=== PATIENT | female | born 1960 | race Caucasian/White ===

== ENCOUNTER → 2022-04-03 | Outpatient (CLI) | payer OTHER ==
[~2022-04-03] MED LIST: LOVA20 PO; METO50ER PO; OXYACE5T PO
[2022-04-08 17:11] LABS: HPV 16 Negative (Negative); HPV 18 Negative (Negative); HPV OTHER HR TYPES Negative (Negative)
== END | disposition home or self-care (01) ==
LOC: RAD SHORT 12:40
PROVIDERS: Registered Nurse Community Health
DX: Z12.4 Encounter for screening for malignant neoplasm of cervix (principal)
CPT/HCPCS: 87624; G0123

== ENCOUNTER 2024-07-18 17:00 | Inpatient (IN) | payer OTHER ==
[~2024-07-18] VITALS: Ht 170.2 cm; Wt 78.5 kg
[2024-07-18] VITALS (11 sets, daily range): BP systolic 111–164; BP diastolic 67–94
[2024-07-18 17:12] LABS: Calcium, Ionized (POC) 1.13 mmol/L (1.10-1.46); Chloride (POC) 105 mmol/L (98-108); Creatinine (POC) 0.7 mg/dL (0.6-1.0); Glucose (ISTAT POC) 131 mg/dL (70-99); Potassium (POC) 3.6 mmol/L (3.5-5.5); Sodium (POC) 138 mmol/L (135-148); Total CO2 (POC) 23 mmol/L (21-32)
[2024-07-18] MEDS ORDERED: Morphine Sulfate 4 MG/1 ML Injection ONE (17:16)
[2024-07-18] MEDS ORDERED: Verapamil HCL 2.5 MG/ML 2ML Injection ONE (17:20)
[2024-07-18] MEDS ORDERED: Heparin Sodium 1000 Units/ML 10ML MDV ONE (17:21)
[2024-07-18] MEDS ORDERED: FentaNYL Citrate 50 MCG/ML 2 ML Injection ONE (17:21)
[2024-07-18] MEDS ORDERED: Nitroglycerin 2 MG/20 ML BTL ONE (17:21)
[2024-07-18] MEDS ORDERED: NS 250 ML IV ONE (17:21)
[2024-07-18] MEDS ORDERED: NS 1,000 ML IV ONE ×2 (17:21→17:22)
[2024-07-18] MEDS ORDERED: Midazolam HCl 1MG / ML 2ML Vial ONE (17:21)
[2024-07-18 17:27] LABS: BASOPHILS ABSOLUTE AUTO 0.02 K/mm3 (0.00-0.23); BASOPHILS PERCENT AUTO 0 % (0-2); EOSINOPHILS ABSOLUTE AUTO 0.03 K/mm3 (0.00-0.68); EOSINOPHILS PERCENT AUTO 0 % (0-6); Hematocrit 44.6 % (33.0-51.0); Hemoglobin 15.4 g/dL (11.5-16.0); IMMATURE GRAN ABSOLUTE AUTO 0.03 K/mm3 (0.00-0.10); IMMATURE GRAN PERCENT AUTO 0 % (0-1); LYMPHOCYTES ABSOLUTE AUTO 2.11 K/mm3 (0.84-5.20); LYMPHOCYTES PERCENT AUTO 24 % (21-46); MONOCYTES ABSOLUTE AUTO 0.44 K/mm3 (0.16-1.47); MONOCYTES PERCENT AUTO 5 % (4-13); Mean Corpuscular HGB 29.7 pg (26.0-34.0); Mean Corpuscular HGB Conc 34.5 g/dL (31.5-36.5); Mean Corpuscular Volume 86 fL (80-100); Mean Platelet Volume 9.3 fL (9.1-12.4); NEUTROPHILS ABSOLUTE AUTO 6.36 K/mm3 (1.96-9.15); NEUTROPHILS PERCENT AUTO 71 % (41-73); Platelet Count 297 K/mm3 (150-400); RDW Coefficient Variation 12.2 % (11.7-14.2); RDW Standard Deviation 38.5 fL (35.1-46.3); Red Blood Cell Count 5.18 M/mm3 (3.80-5.20); White Blood Cell Count 8.99 K/mm3 (4.00-11.30)
[2024-07-18] MEDS ORDERED: Atropine Sulfate 0.1 MG/ML 10ML SYR ONE (17:27)
[2024-07-18] MEDS ORDERED: Phenylephrine HCl 100 MCG/ML-NS 10MLSYR (1MG/10ML) ONE (17:50)
[2024-07-18] MEDS ORDERED: Tirofiban HCL Monohydrate 3.75 MG/15 ML Vial ONE (17:52)
[2024-07-18 17:56] LABS: International Normalized Ratio 0.97; Prothrombin Time Results 10.4 Sec (9.7-11.5)
[2024-07-18 17:57] LABS: Albumin, Blood 3.6 g/dL (3.4-5.0); Bilirubin, Total 0.6 mg/dL (0.1-1.0); Bun/Creatinine Ratio 21.8 (12.0-20.0); Calcium, Blood 9.4 mg/dL (8.5-10.1); Creatinine, Blood 0.6 mg/dL (0.40-1.00); Globulin, Blood 3.7 g/dL (2.2-4.0); Potassium, Blood 3.6 mmol/L (3.5-5.5); Total Protein, Blood 7.3 g/dL (6.4-8.2)
[2024-07-18] MEDS ORDERED: Ticagrelor 90 MG TABLET PO ONE (18:19)
[2024-07-18] MEDS ORDERED: Heparin Sodium,Porcine 5,000 UNIT/0.5 ML SDV SC ONE (18:19)
--- NOTE | 2024-07-18 19:04 | NUR ---
ADMISSION: Pt arrived to ICU 15 from landscape laborer at 1843 with 14mls in TR band. laborer tanbark staff removed one ml of air in TR band in room as pt reported numbness in her thumb. Pt is A/O x 4. Dr Chirinos reported to bedside shortly after pt arrival. Report given to gas torch brazier RN.
[2024-07-18 20:59] LABS: CHOL/HDL RATIO 3.4; Cholesterol 267 mg/dL (50-200); HDL Cholesterol 78 mg/dL (>39); LDL/HDL RATIO 2.3; Low Density Lipoprotein Chol 178 mg/dL (0-110); Magnesium, Blood 1.8 mg/dL (1.6-2.4); Triglycerides 57 mg/dL (30-160); Very Low Density Lipoprot Chol 11 mg/dL (6-32)
[2024-07-19] VITALS (17 sets, daily range): BP systolic 103–175; BP diastolic 58–96
[2024-07-19 03:28] LABS: BASOPHILS ABSOLUTE AUTO 0.02 K/mm3 (0.00-0.23); BASOPHILS PERCENT AUTO 0 % (0-2); EOSINOPHILS ABSOLUTE AUTO 0.07 K/mm3 (0.00-0.68); EOSINOPHILS PERCENT AUTO 1 % (0-6); Hematocrit 41.1 % (33.0-51.0); Hemoglobin 14.2 g/dL (11.5-16.0); IMMATURE GRAN ABSOLUTE AUTO 0.02 K/mm3 (0.00-0.10); IMMATURE GRAN PERCENT AUTO 0 % (0-1); LYMPHOCYTES PERCENT AUTO 27 % (21-46); MONOCYTES ABSOLUTE AUTO 0.43 K/mm3 (0.16-1.47); MONOCYTES PERCENT AUTO 6 % (4-13); Mean Corpuscular HGB 30.5 pg (26.0-34.0); Mean Corpuscular HGB Conc 34.5 g/dL (31.5-36.5); Mean Corpuscular Volume 88 fL (80-100); Mean Platelet Volume 9.3 fL (9.1-12.4); NEUTROPHILS ABSOLUTE AUTO 4.44 K/mm3 (1.96-9.15); NEUTROPHILS PERCENT AUTO 66 % (41-73); Platelet Count 222 K/mm3 (150-400); RDW Coefficient Variation 12.5 % (11.7-14.2); RDW Standard Deviation 40.4 fL (35.1-46.3); Red Blood Cell Count 4.66 M/mm3 (3.80-5.20); White Blood Cell Count 6.78 K/mm3 (4.00-11.30)
[2024-07-19 03:55] LABS: Albumin, Blood 3.2 g/dL (3.4-5.0); Albumin/Globulin Ratio 0.9 (0.8-1.8); Bilirubin, Total 0.7 mg/dL (0.1-1.0); Bun/Creatinine Ratio 28.5 (12.0-20.0); Calcium, Blood 8.8 mg/dL (8.5-10.1); Creatinine, Blood 0.49 mg/dL (0.40-1.00); Globulin, Blood 3.6 g/dL (2.2-4.0); Potassium, Blood 3.9 mmol/L (3.5-5.5); Total Protein, Blood 6.8 g/dL (6.4-8.2)
--- NOTE | 2024-07-19 04:37 | NUR ---
PROVIDER STEPHANIE UPDATED ON PT CONDITION. ORDERS FOR STATUS CHANGE TO MEDICAL W/ TELE
--- NOTE | 2024-07-19 04:42 | NUR ---
PROVIDER STEPHANIE UPDATED ON PT CONDITION. VERBAL ORDERS FOR STATUS CHANGE TO PCU.
--- NOTE | 2024-07-19 05:00 | NUR ---
NOC SHIFT SUMMARY PT SLEPT FOR MAJORITY OF SHIFT. PT EASILY ROUSIBLE TO VOICE. PT IS ORIENTED, PLEASANT AND COOPERATIVE W/ CARE. PT BILAT AC IVS PATENT AND SALINE LOCKED. PT DENIES CP, SOB, OR OTHER COMPLAINTS. PT IS ON ROOM AIR W/ CLEAR LUNGS, SATS >95%. NSR/SINUS BILLY, RATE OF 50-60S ON MONITOR. PT HAD ONE RUN OF VTACH AROUND 0200, UNSUSTAINED. PT REPORTED FEELING A 'FLUTTER SENSATION' DURING EVENT. BP STABLE W/ MAP >65. PT AFEBRILE. DIET ADVANCED TO HEART HEALTHY AND TOLERATING WELL. NO BM DURING SHIFT. PUREWICK IN PLACE W/ SMALL AMOUNT OF YELLOW URINE OUTPUT. TR BAND REMOVED FROM R. RADIAL SITE. TEGADERM PLACED OVER SITE- AREA IS CLEAN/DRY/INTACT, NO HEMATOMA OR OOZING OBSERVED. NO OTHER SKIN ISSUES OBSERVED. PT ABLE TO REPOSITION SELF ON BED INDEPENDENTLY. USING CALL LIGHT APPRORIATELY TO MAKE NEEDS KNOWN. PLAN OF CARE ONGOING.
--- NOTE | 2024-07-19 07:00 | NUR ---
ASSUMED CARE OF PATIENT AT APPROXIMATELY 0700. BEDSIDE REPORT RECEIVED FROM NANCY FOWLER. PT ASLEEP IN BED BUT ROUSES TO VERBAL STIMULI. CONTINUOUS CARDIAC MONITORING IN PLACE SHOWS SR, BP STABLE c MAP > 65. DENIES CP/PRESSURE OR SOB. ON RA WITH O2 SATURATION > 92%. IV'S SALINE LOCKED. SEE SHIFT ASSESSMENT FOR FULL DETAILS.
[2024-07-19] MEDS ORDERED: Nicotine 14 MG PATCH TOP SCH (09:00)
[2024-07-19] MEDS ORDERED: Aspirin 81 MG Chew PO SCH (09:00)
[2024-07-19] MEDS ORDERED: Lisinopril 5 MG Tab PO SCH (09:00)
[2024-07-19] MEDS ORDERED: Atorvastatin 40 MG Tab PO SCH ×2 (09:00→21:00)
[2024-07-19] MEDS ORDERED: Metoprolol Succinate 50 MG TABCR PO SCH (09:00)
[2024-07-19] MEDS ORDERED: Ticagrelor 90 MG TABLET PO SCH (09:00)
--- NOTE | 2024-07-19 12:43 | NUR ---
R RADIAL SITE OOZING AT APPROXIMATELY 1200 R RADIAL ACCESS SITE HAD MINIMAL OOZING UNDERNEATH DRESSING. MANUAL PRESSURE APPLIED FOR 5 MINUTES, SITE CLEAN AND NEW DRESSING APPLIED. PT TOLERATED WELL. WILL CONTINUE TO MONITOR.
--- NOTE | 2024-07-19 17:47 | NUR ---
SHIFT SUMMARY NO ACUTE CHANGES SINCE START OF SHIFT. PT REMAINS ALERT AN ORIENTED X 4. CONTINUOUS CARDIAC MONITORING SHOWS SR, BP STABLE c MAP > 65. DENIES CP/PRESSURE, SOB. SBA TO BSC c CORD GUIDANCE. TOLERATES PO MEDS AND INTAKE WELL. R RADIAL SITE UNCHANGED SINCE 1200 NOTE (SEE HX). WILL CONTINUE TO MONITOR AND REPORT TO ONCOMING RN.
[2024-07-20 03:33] LABS: Hematocrit 43.7 % (33.0-51.0); Hemoglobin 14.7 g/dL (11.5-16.0); Mean Corpuscular HGB 29.9 pg (26.0-34.0); Mean Corpuscular HGB Conc 33.6 g/dL (31.5-36.5); Mean Corpuscular Volume 89 fL (80-100); Mean Platelet Volume 9.4 fL (9.1-12.4); Platelet Count 214 K/mm3 (150-400); RDW Coefficient Variation 12.4 % (11.7-14.2); RDW Standard Deviation 40.5 fL (35.1-46.3); Red Blood Cell Count 4.92 M/mm3 (3.80-5.20); White Blood Cell Count 5.73 K/mm3 (4.00-11.30)
[2024-07-20 03:54] LABS: Albumin, Blood 3.4 g/dL (3.4-5.0); Albumin/Globulin Ratio 0.9 (0.8-1.8); Bilirubin, Total 0.9 mg/dL (0.1-1.0); Calcium, Blood 8.9 mg/dL (8.5-10.1); Creatinine, Blood 0.61 mg/dL (0.40-1.00); Globulin, Blood 3.7 g/dL (2.2-4.0); Potassium, Blood 4.1 mmol/L (3.5-5.5); Total Protein, Blood 7.1 g/dL (6.4-8.2)
--- NOTE | 2024-07-20 06:44 | NUR ---
END OF SHIFT: THIS PT HAD NO ACUTE OVERNIGHTS AND HAS SLEPT MOST OF THE NIGHT. THIS RN SPOKE TO INVERFORM MACHINE OPERATOR IN AM AND SAID SHE IS READY FOR DISCHARGE FROM HIS PERSPECTIVE.
--- NOTE | 2024-07-20 07:00 | NUR ---
ASSUMPTION OF CARE: PT IS IN BED RESTING THIS AM SOUNDLY RR RATE REGULAR. PT HAS 2 PIV'S BILAT AC'S. FLUSH WITH EASE AND BLOOD RETURN BACK. NO EDEMA TO NOTE, SUAD.
[2024-07-20 08:13] VITALS: BP 131/76
[2024-07-20] MEDS ORDERED: ATORVASTATIN CA80 M1 PO (09:38)
[2024-07-20] MEDS ORDERED: ASPI81CH PO (09:38)
[2024-07-20] MEDS ORDERED: Lisinopril2.5 MG PO (09:39)
[2024-07-20] MEDS ORDERED: NICODERM CQ1 EA11 TOP (09:40)
[2024-07-20] MEDS ORDERED: Nicoderm Cq1 EACH TOP (09:41)
[2024-07-20] MEDS ORDERED: TICA90TA PO (09:41)
--- NOTE | 2024-07-20 09:59 | NUR ---
PROGRESS: PT JUST RECIEVED HER DC ORDERS. SHE IS GETTING READY TO GO HOME. STUDENT NURSE PULLING OUT IV. PT CALLED TO PICK HER UP. PT VS STABLE, AFEBRILE, NORMAL SINUS RHYTHM BP 131/76 MAP 90. PULSE 80-110. RR 12-20 DEPENDING ON ACTIVITY. PT VOIDING WITHOUT DIFFICULTY. PT STATES SHE HAS THINGS TO HELP HER HAVE EASE OF BM AT HOME, SHE HAS NOT HAD A BM HERE OF YET. INSTRUCTED INFORMATION ON MEDICATION FOR DC PLAN.
== END 2024-07-20 11:00 | disposition home or self-care (01) | DRG 322 ==
LOC: ER 17:00 → ICUE 17:27 → ER 17:31 → ICUE 18:44
PROVIDERS: Family Medicine; Student in an Organized Health Care Education/Training Program; ADMIT Student in an Organized Health Care Education/Training Program
PROC: 02703ZZ Dilation of Coronary Artery, One Artery, Percutaneous Approach (ICD-10-PCS; principal; 2024-07-18)
PROC: 027034Z Dilation of Coronary Artery, One Artery with Drug-eluting Intraluminal Device, Percutaneous Approach (ICD-10-PCS; principal; 2024-07-18)
DX: I21.09 ST elevation (STEMI) myocardial infarction involving other coronary artery of anterior wall (principal); I10 Essential (primary) hypertension; E78.5 Hyperlipidemia, unspecified; F17.210 Nicotine dependence, cigarettes, uncomplicated; I21.29 ST elevation (STEMI) myocardial infarction involving other sites; F12.90 Cannabis use, unspecified, uncomplicated; F10.10 Alcohol abuse, uncomplicated; Z71.6 Tobacco abuse counseling; Z79.899 Other long term (current) drug therapy; Z87.19 Personal history of other diseases of the digestive system; Z90.710 Acquired absence of both cervix and uterus; Z90.721 Acquired absence of ovaries, unilateral; Z98.890 Other specified postprocedural states
CPT/HCPCS: 36415; 76937; 80047; 80053; 80061; 83036; 83735; 84484; 85014; 85025; 85027; 85347; 85610; 85730; 93005; 93010; 93306; 93454; 99152; 99153; 99284-25; A9270; C1725; C1769; C1874; C1887; C1894; C9600; C9606; J0461; J1644; J2250; J2270; J2371; J3010; J3246; J7030; J7050; Q9967

== ENCOUNTER 2024-07-28 04:10 | Inpatient (IN) | payer OTHER ==
[~2024-07-28] VITALS: Ht 170.2 cm; Wt 80.4 kg
[~2024-07-28 04:10] MED LIST changes: +ASPI81CH PO; +ATORVASTATIN CA80 M1 PO; +Lisinopril2.5 MG PO; +NICODERM CQ1 EA11 TOP; +Nicoderm Cq1 EACH TOP; +TICA90TA PO
[2024-07-28 04:29] LABS: BASOPHILS ABSOLUTE AUTO 0.02 K/mm3 (0.00-0.23); BASOPHILS PERCENT AUTO 0 % (0-2); EOSINOPHILS ABSOLUTE AUTO 0.06 K/mm3 (0.00-0.68); EOSINOPHILS PERCENT AUTO 1 % (0-6); Hematocrit 37.1 % (33.0-51.0); Hemoglobin 12.7 g/dL (11.5-16.0); IMMATURE GRAN ABSOLUTE AUTO 0.04 K/mm3 (0.00-0.10); IMMATURE GRAN PERCENT AUTO 1 % (0-1); LYMPHOCYTES ABSOLUTE AUTO 0.56 K/mm3 (0.84-5.20); LYMPHOCYTES PERCENT AUTO 9 % (21-46); MONOCYTES ABSOLUTE AUTO 0.04 K/mm3 (0.16-1.47); MONOCYTES PERCENT AUTO 1 % (4-13); Mean Corpuscular HGB Conc 34.2 g/dL (31.5-36.5); Mean Corpuscular Volume 88 fL (80-100); Mean Platelet Volume 9.3 fL (9.1-12.4); NEUTROPHILS ABSOLUTE AUTO 5.36 K/mm3 (1.96-9.15); NEUTROPHILS PERCENT AUTO 88 % (41-73); Platelet Count 178 K/mm3 (150-400); RDW Standard Deviation 38.9 fL (35.1-46.3); Red Blood Cell Count 4.23 M/mm3 (3.80-5.20); White Blood Cell Count 6.08 K/mm3 (4.00-11.30)
[2024-07-28 05:00] LABS: Albumin, Blood 3.3 g/dL (3.4-5.0); Bilirubin, Total 0.5 mg/dL (0.1-1.0); Bun/Creatinine Ratio 28.4 (12.0-20.0); Calcium, Blood 8.2 mg/dL (8.5-10.1); Creatinine, Blood 0.56 mg/dL (0.40-1.00); Globulin, Blood 3.2 g/dL (2.2-4.0); Magnesium, Blood 1.7 mg/dL (1.6-2.4); Phosphorus, Blood 2.8 mg/dL (2.5-4.9); Potassium, Blood 4.1 mmol/L (3.5-5.5); Total Protein, Blood 6.5 g/dL (6.4-8.2)
[2024-07-28] MEDS ORDERED: Ondansetron HCl 2 MG / ML 2ML Vial IV PRN (05:30)
[2024-07-28] MEDS ORDERED: Nitroglycerin 0.4 MG SUBL SL PRN (05:30)
[2024-07-28] MEDS ORDERED: FLU VACC TS2024-25(6MOS UP)/PF 45 MCG/0.5 ML SYRINGE IM ONE (05:30)
[2024-07-28] MEDS ORDERED: FentaNYL Citrate 50 MCG/ML 2 ML Injection IV PRN (05:30)
[2024-07-28] MEDS ORDERED: NS 1,000 ML IV SCH (05:30)
[2024-07-28] MEDS ORDERED: Enoxaparin 40 MG/0.4 ML SYR SC SCH (09:00)
[2024-07-28] MEDS ORDERED: Clopidogrel Bisulfate 300 MG TABLET PO STA (14:44)
[2024-07-28 15:02] VITALS: BP 139/69
[2024-07-28] MEDS ORDERED: Ticagrelor 90 MG TABLET PO SCH ×3 (15:23→21:00)
[2024-07-28] MEDS ORDERED: Clopidogrel Bisulfate 300 MG TABLET PO ONE (15:35)
--- NOTE | 2024-07-28 15:44 | NUR ---
1500- PT TO MEDICAL FLOOR IN STABLE CONDITION. PT DENIES ANY CHEST PAIN AT THIS TIME.
[2024-07-28 16:15] LABS: Anti-Xa UFH, PHA Monitoring <0.10 IU/mL; International Normalized Ratio 0.96; Prothrombin Time Results 10.3 Sec (9.7-11.5)
[2024-07-28] MEDS ORDERED: Heparin Sodium,Porcine/0.5 NS 500 ML IV SCH (16:35)
[2024-07-28] MEDS ORDERED: Heparin Sodium 5000 Units/ML 1ML MDV IV ONE (16:35)
[2024-07-28] MEDS ORDERED: Dose Adjust by Pharmacy XX STA (16:35)
--- NOTE | 2024-07-28 16:40 | NUR ---
1630- THIS RN NOTIFIED MD MCMILLAN OF TROP INCREASING TO 243 FROM [phone]. AWARE.
--- NOTE | 2024-07-28 18:53 | NUR ---
SUMMARY- AAOX4. ON RA. IND IN ROOM. PT DENIES ANY C/P THIS SHIFT. GOOD APPETITE. NSR IN 80'S ON TELE. NO COMPLAINTS. NO ACUTE EVENTS THIS SHIFT.
[2024-07-28 19:54] VITALS: BP 164/61
[2024-07-28 23:25] VITALS: BP 165/81
[2024-07-29] VITALS (11 sets, daily range): BP systolic 123–171; BP diastolic 54–88
[2024-07-29] MEDS ORDERED: Dose Adjust by Pharmacy XX STA (00:11)
--- NOTE | 2024-07-29 05:52 | NUR ---
AAOX4. TELE SR @ 71. USES CALL LIGHT FOR NEEDS. HEPARIN DRIP 13 UNITS WITH 75ML/HR NS, LAC. NPO @ MIDNIGHT FOR [facility],07/29/24. C/O NECK PAIN THROUGHTOUT DAY AND CONTINUED THROUGH NIGHT. ADMIN 50MCG FENTANYL WHICH DECREASED PAIN, POC IN BED. PT C/O NOT ABLE TO MOVE BODY AT ALL, BUT WHEN ASKED TO MORE EXTREMITES AND HEAD, PT WAS ABLE TO PERFORM AND THEN AMBULTED TO BR WITH STEADY GAIT AND NO ASSSISTANCE. HARSH COUGH, WHICH HURTS THROAT AND NECK. CONSULTED WITH BALANCE TRUING INSPECTOR, ADVISED EKG IF PAIN CONTINUES AFTER 0500, PT SLEEPING, EVEN NON LABORED RESP WITH NORMAL SINUS RHYTHM @ 72.
[2024-07-29] MEDS ORDERED: Verapamil HCL 2.5 MG/ML 2ML Injection ONE (06:47)
[2024-07-29] MEDS ORDERED: NS 250 ML IV ONE (06:47)
[2024-07-29] MEDS ORDERED: Heparin Sodium 1000 Units/ML 10ML MDV ONE ×2 (06:47→07:44)
[2024-07-29] MEDS ORDERED: NS 1,000 ML IV ONE ×2 (06:47→07:13)
[2024-07-29 07:08] LABS: BASOPHILS ABSOLUTE AUTO 0.01 K/mm3 (0.00-0.23); BASOPHILS PERCENT AUTO 0 % (0-2); EOSINOPHILS ABSOLUTE AUTO 0.08 K/mm3 (0.00-0.68); EOSINOPHILS PERCENT AUTO 2 % (0-6); IMMATURE GRAN ABSOLUTE AUTO 0.01 K/mm3 (0.00-0.10); IMMATURE GRAN PERCENT AUTO 0 % (0-1); LYMPHOCYTES ABSOLUTE AUTO 1.51 K/mm3 (0.84-5.20); LYMPHOCYTES PERCENT AUTO 41 % (21-46); MONOCYTES ABSOLUTE AUTO 0.29 K/mm3 (0.16-1.47); MONOCYTES PERCENT AUTO 8 % (4-13); Mean Corpuscular HGB 30.2 pg (26.0-34.0); Mean Corpuscular HGB Conc 35.1 g/dL (31.5-36.5); Mean Corpuscular Volume 86 fL (80-100); Mean Platelet Volume 9.4 fL (9.1-12.4); NEUTROPHILS ABSOLUTE AUTO 1.81 K/mm3 (1.96-9.15); NEUTROPHILS PERCENT AUTO 49 % (41-73); Platelet Count 142 K/mm3 (150-400); RDW Coefficient Variation 11.9 % (11.7-14.2); Red Blood Cell Count 4.31 M/mm3 (3.80-5.20); White Blood Cell Count 3.71 K/mm3 (4.00-11.30)
[2024-07-29 07:32] LABS: Albumin, Blood 3.1 g/dL (3.4-5.0); Albumin/Globulin Ratio 0.9 (0.8-1.8); Bilirubin, Total 0.5 mg/dL (0.1-1.0); Bun/Creatinine Ratio 17.2 (12.0-20.0); Calcium, Blood 8.1 mg/dL (8.5-10.1); Creatinine, Blood 0.58 mg/dL (0.40-1.00); Globulin, Blood 3.4 g/dL (2.2-4.0); Potassium, Blood 3.8 mmol/L (3.5-5.5); Total Protein, Blood 6.5 g/dL (6.4-8.2)
[2024-07-29] MEDS ORDERED: Clarify Drug Order XX ONE (07:40)
[2024-07-29] MEDS ORDERED: Midazolam HCl 1MG / ML 2ML Vial ONE (07:43)
[2024-07-29] MEDS ORDERED: FentaNYL Citrate 50 MCG/ML 2 ML Injection ONE (07:43)
--- NOTE | 2024-07-29 08:00 | NUR ---
PATIENT TAKEN TO CRESTER. WILL TRANSFER TO PCU 6 AFTER. HEPARIN GTT STOPPED AND PHARMACY NOTIFIED.
[2024-07-29] MEDS ORDERED: Tirofiban HCL Monohydrate 3.75 MG/15 ML Vial ONE (08:27)
[2024-07-29] MEDS ORDERED: Phenylephrine HCl 100 MCG/ML-NS 10MLSYR (1MG/10ML) ONE (08:29)
[2024-07-29] MEDS ORDERED: Atropine Sulfate 0.1 MG/ML 10ML SYR ONE (08:38)
--- NOTE | 2024-07-29 08:43 | NUR ---
REPORT RECIEVED FROM NOAH COLIN RN AT 0843. PT CURRENTLY IN CUSTOMIZER.
[2024-07-29] MEDS ORDERED: Metoprolol Succinate 25 MG TABCR PO SCH (09:00)
[2024-07-29] MEDS ORDERED: Clopidogrel Bisulfate 75 MG Tab PO SCH (09:00)
[2024-07-29] MEDS ORDERED: Aspirin 81 MG Chew PO SCH (09:00)
--- NOTE | 2024-07-29 09:48 | NUR ---
[facility] AND ON RA. TR BAND IN PLACE ON RIGHT RADIAL SITE. RADIAL SITE WITHOUT BLEEDING, HEMATOMA, OR TENDERNESS NOTED. ARM BOARD IN PLACE AND PT INSTRUCTED NOT TO BEND RIGH WRIST OR PUSH OR PULL HERSELF UP WITH RIGHT ARM. REPORT RECIEVED FROM ART TEACHER RN AT BEDSIDE.
[2024-07-29] MEDS ORDERED: AmLODIPine Besylate 5 MG Tab PO SCH (10:00)
[2024-07-29] MEDS ORDERED: Metoprolol Succinate 50 MG TABCR PO SCH (10:00)
--- NOTE | 2024-07-29 15:36 | NUR ---
TR BAND RECOVERED. NO BLEEDING, SWELLING OR TNEDERNESS NOTED. TEGADERM IN PLAE WITH ARM BOARD. PT INSTRUCTED TO WATCH FOR BLEEDING AND NOT TO CHIP WRIST.
--- NOTE | 2024-07-29 17:46 | NUR ---
SHIFT SUMMARY PT A/OX4 AND COOPERATIVE OF CARE. PT ABLE TO EXPRESS NEEDS AND CALLS APPROPIATE. PT INDEPENDENT IN BED, SBA TO TOILET. PT HYPERTENSIVE WHEN ARRIVING FROM ANGIO, MORNING MEDS GIVEN AND BP'S IMPROVED. OTHER VSS THROUGOUT SHIFT WITH O2 SATS IN THE 90'S ON RA. NO REPORT OF CHEST PAIN/PRESSURE SINCE ARRIVING TO UNIT. NO REPORT OF SOB/DYSPNEA SINCE ARRIVING TO UNIT. PT TO PUNCH FINISHER FOR ANGIO THIS SHIFT, X1 STENT PLACED. TR BAND RECOVERED AND TEGADERM IN PLACE. SITE C/D/I. ARM BOARD IN PLACE. PT HAD QUESTIONS ABOUT MEDS FROM PREVIOUS DISCHARGE, RADAR SCIENTIST DISCUSSED WITH PT AND HER .
[2024-07-29] MEDS ORDERED: Acetaminophen 325 MG TABLET PO PRN (18:20)
[2024-07-30 04:00] VITALS: BP 118/62
--- NOTE | 2024-07-30 05:11 | NUR ---
SHIFT SUMMARY PT A&O X4, CALM, COOPERATIVE TO CARE. HR IN THE 80'S, SINUS RHYTHM, DENIES CP/PRESSURE, NUMB/TINGLING, SBP STABLE. 02 >92% ON RA, SHE DENIES SOB. PT WITH RIGHT RADIAL SITE FROM ANGIOGRAM ON 07/29. TEGADERM IN PLACE, NO OOZING OR BLEEDING PRESENT. ARMBOARD IN PLACE. PT DENIES ANY QUESTIONS OR CONCERNS AT THIS TIME. WILL MONITOR PT AND REPORT TO ONCOMING RN.
[2024-07-30 07:44] VITALS: BP 142/64
[2024-07-30 12:13] VITALS: BP 154/56
[2024-07-30] MEDS ORDERED: AMLO5 PO (13:22)
[2024-07-30] MEDS ORDERED: CLOP75 PO (13:22)
--- NOTE | 2024-07-30 13:57 | NUR ---
DISCHARGE UPDATE DISCHARGE PACKET GONE OVER WITH PT AND PT AT 1340. PT DISCHARGED AT 1350 VIA WHEELCHAIR AND ON RA. PT ABLE TO TRANSFER SELF TO AND FROM WHEELCHAIR ON HER OWN, TOLERATED WELL. DISCHARGE PACKET AND PERSONAL BELONGINGS WITH PT AT TIME OF DISCHARGE.
--- NOTE | 2024-07-30 14:03 | NUR ---
SHIFT SUMMARY PATIENT AOX4 ABLE TO MAKE NEEDS KNOWN. SHE DENIES CHEST PAIN AND SOB. HER VITAL SIGNS ARE STABLE AND RADIAL CATH SITE IS CDI WITH NO SIGNS OF HEMATOMA. SHE IS READY FOR DISCHARGE. SHE UNDERSTANDS ALL HER DC INSTRUCTIONS AND HAS NO FURTHER QUESTIONS.
== END 2024-07-30 13:50 | disposition home or self-care (01) | DRG 321 ==
LOC: ER 04:10 → ERHOLD 04:11 → PCU 04:11 → MEDS 14:57 → PCU 07-29 08:17
PROVIDERS: Emergency Medicine; Internal Medicine Interventional Cardiology; ADMIT Internal Medicine
PROC: 027034Z Dilation of Coronary Artery, One Artery with Drug-eluting Intraluminal Device, Percutaneous Approach (ICD-10-PCS; principal; 2024-07-29)
PROC: B2111ZZ Fluoroscopy of Multiple Coronary Arteries using Low Osmolar Contrast (ICD-10-PCS; 2024-07-29)
DX: I21.19 ST elevation (STEMI) myocardial infarction involving other coronary artery of inferior wall (principal); I25.42 Coronary artery dissection; I10 Essential (primary) hypertension; E78.5 Hyperlipidemia, unspecified; Z96.669 Presence of unspecified artificial ankle joint; F17.210 Nicotine dependence, cigarettes, uncomplicated; I20.9 Angina pectoris, unspecified; Z95.5 Presence of coronary angioplasty implant and graft; Z90.710 Acquired absence of both cervix and uterus; Z79.899 Other long term (current) drug therapy; Z79.82 Long term (current) use of aspirin; Z79.811 Long term (current) use of aromatase inhibitors; Z90.721 Acquired absence of ovaries, unilateral
CPT/HCPCS: 36415; 71045; 76937; 80053; 83690; 83735; 83880; 84100; 84484; 85025; 85347; 85520; 85610; 85730; 93005; 93010; 93454; 99152; 99153; 99285-25; A9270; C1725; C1769; C1874; C1887; C1894; C9600; G0378; J0461; J1644; J2250; J2371; J2405; J3010; J3246; J7030; J7050; Q9967

== ENCOUNTER 2025-01-13 08:23 | Day surgery (SDC) | payer OTHER ==
[~2025-01-13] VITALS: Ht 170.2 cm; Wt 84.4 kg
[~2025-01-13 08:23] MED LIST changes: +AMLO5 PO; +CLOP75 PO
[2025-01-13] MEDS ORDERED: LOSA25 PO (09:22)
[2025-01-13] MEDS ORDERED: NITR.4SL SL (09:22)
[2025-01-13 09:28] VITALS: BP 122/109
[2025-01-13] MEDS ORDERED: NS 250 ML IV ONE (13:32)
[2025-01-13] MEDS ORDERED: NS 1,000 ML IV ONE ×2 (13:32→14:07)
[2025-01-13] MEDS ORDERED: Heparin Sodium 1000 Units/ML 10ML MDV ONE ×2 (13:32→14:07)
[2025-01-13] MEDS ORDERED: NS 100 ML IV ONE (13:35)
[2025-01-13] MEDS ORDERED: Midazolam HCl 1MG / ML 2ML Vial ONE (14:06)
[2025-01-13] MEDS ORDERED: FentaNYL Citrate 50 MCG/ML 2 ML Injection ONE (14:07)
[2025-01-13] MEDS ORDERED: Nitroglycerin 2 MG/20 ML BTL ONE (14:50)
[2025-01-13 15:30] VITALS: BP 135/56
[2025-01-13 15:45] VITALS: BP 133/66
--- NOTE | 2025-01-13 15:54 | NUR ---
REPORT RECEIVED, RETURN FROM PROCEDURE, PULSES PRESENT, SITE INTACT FEMORAL RIGHT, ANGIOSEAL PER REPORT SUCCESSFUL, MONITOR SITE. VSS, BEAR HUGGER IN PLACE (WARMER) AND PATIENT SLEEPING, AWAKENED INTERMITTENTLY. NO ACUTE NEEDS, PENDING D/C.
[2025-01-13 16:00] VITALS: BP 131/59
[2025-01-13 16:30] VITALS: BP 158/65
[2025-01-13 17:00] VITALS: BP 132/58
--- NOTE | 2025-01-13 17:26 | NUR ---
PATIENT AWOKE EARLIER ALSO ARRIVED, NOTED PATIENT LEG REMAINS INTACT, REMINDERS TO KEEP HER HEAD DOWN AND NOT MOVE LEGS, NOT TURN TO SIDE, PATIENT OVERALL COMPLIANT AFTER FEW REMINDERS. LATER SAT HOB UP SOME, AND PATIENT STATED NEED TO VOID, AFTER SOME TIME OF NOT BEING ABLE TO STAND PATIENT ADVISED OF RISK IF GET UP TOO EARLY AND BLEED, PATIENT VERBALIZED WANTED TO USE RESTROOM, SO AMBULATED AND ON RETURN SITE REMAINED INTACT, DISCUSSED HEPARIN DOSING WELL AND TIMEFRAME/RISKS WITH D/C, PATIENT AND AGREEABLE TO PLAN. DISCUSS D/C INSTRUCTIONS, MEDS, NEED FOR APPOINTMENT FOR OTHER LEG, AND ADVISED TO CALL ON FRIDAY IF DO NOT HEAR FROM OFFICE. IV REMOVED, PATIENT DRESSED, NO QUESTIONS OR CONCERNS WITH D/C INSTRUCTIONS, SITE, OR NAVIGATING ISSUES. LAURA RETURNED, PATIENT TAKEN TO FRONT ENTRANCE BY THIS RN, AND LEFT AT 1730.
== END 2025-01-13 17:30 | disposition home or self-care (01) ==
LOC: MHTC 08:23
DX: I70.211 Atherosclerosis of native arteries of extremities with intermittent claudication, right leg (principal); I70.202 Unspecified atherosclerosis of native arteries of extremities, left leg; I25.10 Atherosclerotic heart disease of native coronary artery without angina pectoris; I25.2 Old myocardial infarction; E78.00 Pure hypercholesterolemia, unspecified; I10 Essential (primary) hypertension; Z87.891 Personal history of nicotine dependence; Z79.02 Long term (current) use of antithrombotics/antiplatelets; Z79.899 Other long term (current) drug therapy; Z88.8 Allergy status to other drugs, medicaments and biological substances; Z95.5 Presence of coronary angioplasty implant and graft
CPT/HCPCS: 37224; 37228; 37232; 75625; 75716; 75774; 76937; 99152; 99153; A9270; C1725; C1760; C1769; C1887; C1894; J1644; J2250; J3010; J7030; J7050; Q9967

== ENCOUNTER 2025-02-12 12:40 | Emergency (ER) | payer OTHER ==
[~2025-02-12] VITALS: Ht 170.2 cm; Wt 86.2 kg
[~2025-02-12 12:40] MED LIST changes: +LOSA25 PO; +NITR.4SL SL
[2025-02-12 13:05] VITALS: BP 99/63
[2025-02-12] MEDS ORDERED: ISOSORBIDE MONO30 MG PO (13:17)
[2025-02-12] MEDS ORDERED: ACET500 PO (14:09)
== END 2025-02-12 14:44 | disposition home or self-care (01) ==
LOC: ER 12:40
DX: M25.512 Pain in left shoulder (principal); R20.0 Anesthesia of skin; W01.0XXA Fall on same level from slipping, tripping and stumbling without subsequent striking against object, initial encounter
CPT/HCPCS: 73030; 99283-25; A9270